=== PATIENT | female | born 1965 | race Caucasian/White ===

== ENCOUNTER 2017-01-15 10:38 | Emergency (ER) | payer MEDICARE, MEDICAID ==
[~2017-01-15 10:38] MED LIST: ADVAIR 10028 BLISTER INH; ASPIRIN81 MG PO; ATIVAN1 M1 PO; CLARITIN10 M4 PO; DIPHENHYDRAMINE25 MG PO; JUNEL PO; KLONOPIN0.5 MG PO; LOESTRIN FE 1/21 TAB PO; OMEPRAZOLE20 MG PO; PAXIL40 M1 PO; SPIRIVA18 MCG IH; TRAZODONE HCL100 MG PO; TRILEPTAL300 M2 PO; ZOFRAN ODT4 MG/UDTAB PO
[2017-01-15] MEDS ORDERED: ATIVAN1 M2 PO (10:58)
[2017-01-15] MEDS ORDERED: SEROQUEL25 M2 PO (10:59)
[2017-01-15] MEDS ORDERED: FLONASE ALLERG9.9 ML (10:59)
[2017-01-15] MEDS ORDERED: LINZESS145 MC1 PO (10:59)
[2017-01-15] MEDS ORDERED: SYMBICORT 160-1 PUFF INH (10:59)
[2017-01-15] MEDS ORDERED: AMBIEN10 M1 PO (11:00)
[2017-01-15] MEDS ORDERED: WOMEN'S LAXATIVE5 M2 PO (11:01)
[2017-01-15] MEDS ORDERED: PHENERGAN12.5 M2 PO (11:01)
== END 2017-01-15 13:50 ==
LOC: EDMED 10:38
DX: S82.832A Other fracture of upper and lower end of left fibula, initial encounter for closed fracture (principal); F17.210 Nicotine dependence, cigarettes, uncomplicated; X50.1XXA Overexertion from prolonged static or awkward postures, initial encounter; Y92.019 Unspecified place in single-family (private) house as the place of occurrence of the external cause